=== PATIENT | female | born 1955 | race Caucasian/White ===

== ENCOUNTER 2024-11-01 07:39 | Day surgery (SDC) | payer BC, MEDICARE ==
[2024-10-27 13:04] VITALS: BMI 25.0
[2024-11-01] MEDS ORDERED: BSS (NA/CA/MG/K) BALANCED SALT SOLUTION OPHTH SOLN 15 ML BOTTLE ONE (08:29)
[2024-11-01] MEDS ORDERED: LIDOCAINE 1% P/F 10 MG/ML VIAL ONE (08:29)
[2024-11-01] MEDS ORDERED: TETRACAINE 0.5% OPHTH SOLN 2 ML BOTTLE ONE (08:29)
[2024-11-01] MEDS: PHENYLEPHRINE 2.5% OPTHALMIC DROP 2ML BOTTLE ONE (08:30)
[2024-11-01] MEDS: CYCLOPENTOLATE 2% OPHTH SOLN 2 ML BOTTLE ONE (08:30)
[2024-11-01] MEDS ORDERED: NEO/POLYMYX B SULF/DEXAMETH OPHTHALMIC 5ML BOTTLE ONE (08:30)
[2024-11-01] MEDS ORDERED: CARBACHOL 0.01% INTRA-OCULAR 1.5 ML VIAL ONE (08:30)
[2024-11-01] MEDS: CIPROFLOXACIN 0.3% EYE DROPS 5 ML BOTTLE ONE (08:30)
[2024-11-01] MEDS: TROPICAMIDE 1% 3 ML EYE DROPS ONE (08:30)
[2024-11-01 08:33] VITALS: RESP 18
[2024-11-01] MEDS ORDERED: MIDAZOLAM HCL 2 MG/2 ML SINGLE DOSE VIAL ONE (10:05)
[2024-11-01] MEDS ORDERED: ACETAMINOPHEN 500 MG TABLET (FP) ONE (10:46)
[2024-11-01 11:18] VITALS: TEMP 97.5
[2024-11-01 11:29] VITALS: BP 129/68; PULSE 79
== END 2024-11-01 11:20 | disposition home or self-care (01) ==
LOC: FASU 07:39
PROVIDERS: ATTEND Ophthalmology
PROC: 08RJ3JZ Replacement of Right Lens with Synthetic Substitute, Percutaneous Approach (ICD-10-PCS; principal; 2024-11-01 10:08)
DX: H26.8 Other specified cataract (principal)
CPT/HCPCS: 66984; V2632